=== PATIENT | male | born 1935 | race Caucasian/White ===

== ENCOUNTER 2022-07-15 15:41 | Emergency (ER) | payer MEDICARE, SELFPAY ==
--- NOTE | ~2022-07-15 | XR_ITS ---
EXAMINATION: XR chest 2V Exam Date/Time: 07/15/2022 17:20 CDT HISTORY: cough, SOB Comparison: None available. RESULT: Lines, tubes, and devices: None. Lungs and pleura: Peripheral reticular opacities. Cardiomediastinal silhouette: Stable. Other: No acute upper abdominal finding. Moderate vertebral body height loss at multiple levels. IMPRESSION: Mild interstitial edema. Reviewed, dictated and finalized at location K. IMPRESSION: Mild interstitial edema.
--- NOTE | ~2022-07-15 | CT_ITS ---
EXAMINATION: CT brain wo con DATE: 07/15/2022 17:42 INDICATION: confusion, dizziness . TECHNIQUE: Computed tomography (CT) of the head was performed without intravenous contrast. The mA wa s adjusted according to patient size. Iterative reconstruction technique was employed. The dose-lengt h product was 605.33 mGy-cm. COMPARISON: None FINDINGS: No acute intracranial hemorrhage or extra-axial fluid collection. No hydrocephalus, mass, or herniation. No acute ischemic infarct. Unremarkable dural venous sinus attenuation. No acute osseous abnormality. Near complete opacification of the right maxillary sinus with surrounding sclerosis. Likely prior rig ht maxillary surgery. Nodular opacities extend into the right nasal cavity. Partial opacification of multiple ethmoid air cells and the inferior right frontal sinuses. The remaining aerated spaces are c lear. Moderate atrophy, including cerebellar atrophy, and chronic white matter change. Atherosclerotic intr acranial calcification. Bilateral lens replacements. IMPRESSION: No acute intracranial process. Chronic right maxillary sinusitis. Reviewed, dictated and finalized at location K.
--- NOTE | 2022-07-15 15:46 | ECG_ITS ---
Measurements Intervals [place] Rate: 65 P: 50 UT: 137 QRS: 27 QRSD: 86 T: 29 QT: 375 QTc: 392 Interpretive Statements SINUS RHYTHM POSSIBLE LEFT ATRIAL ENLARGEMENT BORDERLINE ECG NO PREVIOUS ECG AVAILABLE FOR COMPARISON Electronically Signed On 07-16-2022 7:00:58 CDT by Robbin Garrison D.O.
[2022-07-15 15:57] VITALS: BP 135/72; PULSE 76; RESP 16; TEMP 37.3; O2SAT 100
[2022-07-15 16:07] LABS: Basophils Percent Auto 0.3 % (0.2-1.2); Eosinophils Percent Auto 0.5 % (0-4.4); Hematocrit 46.3 % (42.0-52.0); Hemoglobin 15.1 g/dL (14.0-18.0); Immature Granulocyte Absolute 0.02 K/mm3 (0.00-0.031); Immature Granulocyte Percent A 0.3 % (0-0.5); Immature Platelet Fraction Pct 5.4 % (0.9-11.2); Lymphocytes Absolute Auto 1.19 K/mm3 (0.9-3.2); Lymphocytes Percent Auto 19.6 % (18.3-44.2); Mean Corpuscular HGB Conc 32.6 g/dl (32-36); Mean Corpuscular Hemoglobin 29.8 pg (26-34); Mean Corpuscular Volume 91.3 fl (80-100); Mean Platelet Volume 10.8 fl (7.4-10.4); Monocytes Absolute Auto 0.8 K/mm3 (0.1-0.6); Neutrophils Percent Auto 66.3 % (45.5-73.1); Platelet Count Result 143 k/mm3 (150-375); Red Blood Count 5.07 M/mm3 (4.6-6.20); Red Cell Distribution Width 13.7 % (11.5-14.5); White Blood Count 6.1 K/mm3 (4.5-10.0)
[2022-07-15 16:17] LABS: Alanine Aminotransferase 31 U/L (6-50); Albumin Level 4.1 g/dL (3.5-5.1); Alkaline Phosphatase 78 U/L (38-126); Anion Gap 11 mmol/L (8-16); Aspartate Amino Transferase 46 U/L (17-59); Bilirubin,Total 0.9 mg/dL (0.2-1.3); Blood Urea Nitrogen 25 mg/dL (9-20); Calcium 8.8 mg/dL (8.4-10.2); Carbon Dioxide 25 mmol/L (22-30); Chloride 102 mmol/L (98-107); Estimated CRCL calculation 28 ml/min; Estimated Glomerular Filt Rate 44; Glucose 111 mg/dL (65-110); Potassium 4.1 mmol/L (3.4-5.0); Sodium 138 mmol/L (137-145)
--- NOTE | 2022-07-15 16:59 | ED.GENADULT ---
HPI - General Adult General Chief complaint: Weakness Stated complaint: weakness, balance, confusion x 1 week Time Seen by Provider: 07/15/22 16:58 History of Present Illness HPI narrative: Patient is an 87-year-old male who takes no medications at home here with his daughters for evaluation of weakness over the past several days. Patient's daughters state that the patient has been feeling generally fatigued throughout the day, sleeping much more than usual and has also been more confused than his baseline. Patient also has been experiencing upper respiratory symptoms including cough and congestion. No fevers or known sick contacts at home, although patient is not vaccinated against COVID. Has not yet taken COVID test at home. Additionally has been reporting urinary urgency but no burning, frequency, back pain, hematuria. No abdominal pain, nausea, vomiting, diarrhea or constipation. No chest pain, shortness of breath, headaches, visual changes, unilateral weakness. Patient follows with a primary care doctor regularly, is generally healthy and takes no medications. Related Data Home Medications Medication Instructions Recorded Confirmed No Home Medications 07/15/22 07/15/22 Allergies Allergy/AdvReac Type Severity Reaction Status Date / Time No Known Allergies Allergy Verified 07/15/22 17:06 Review of Systems Review of Systems: Gen: Reports fatigue and weakness. Denies fevers or chills Eyes: Denies eye pain or visual change ENT: Denies congestion Respiratory: Denies shortness of breath or cough CV: Denies chest pain or palpitations GI: Denies abdominal pain nausea, emesis or diarrhea denies burning, urgency, frequency or hematuria Musculoskeletal: Denies back pain or muscle pain Neuro: Denies numbness, tingling, focal weakness Skin: Denies rash Except as documented, all other systems reviewed and negative Exam Narrative: APPEARANCE: No acute distress, nontoxic, resting in bed EYES: EOMI HEENT: Normocephalic, atraumatic, OMM RESPIRATORY: No respiratory distress Clear to auscultation bilaterally with no rhonchi wheezing or rales. CARDIOVASCULAR: Regular rate and rhythm without murmurs rubs or gallops. ABDOMINAL: Soft, nontender, nondistended, no rebound or guarding MUSCULOSKELETAL: Moves all extremities. No clubbing, cyanosis or edema. NEURO: Patient did not know the year was 2021 but is able to say where he is, his name and his birthday. Awake and alert. Following commands, speech normal, no focal deficits SKIN: Warm, dry. No rashes lesions or abrasions PSYCHIATRIC: Normal affect/mood Course Course Emergency Course: Patient ambulated through the department without hypoxia, remained above 95% on room air Vital Signs Vital signs: Vital Signs Temperature 99.1 F 07/15/22 15:57 Pulse Rate 76 07/15/22 15:57 Respiratory Rate 16 07/15/22 15:57 Blood Pressure 135/72 07/15/22 15:57 Pulse Oximetry 100 07/15/22 15:57 Oxygen Delivery Room Air 07/15/22 15:57 Temperature 99.1 F 07/15/22 15:57 Pulse Rate 87 07/15/22 20:28 Respiratory Rate 18 07/15/22 20:28 Blood Pressure 133/73 07/15/22 20:28 Pulse Oximetry 100 07/15/22 20:28 Oxygen Delivery Room Air 07/15/22 15:57 Medical Decision Making MDM Narrative Medical decision making narrative: 87-year-old male here for evaluation of generalized fatigue over the past several days in addition to upper respiratory symptoms. Here he is nontoxic-appearing with normal vital signs, was noted to have a temperature of 99.1. His COVID test is positive which likely explains his symptoms, although a full work-up was done in addition. CT brain without acute ischemic changes. UA with protein and ketones but no signs of infection. Chest x-ray with trace pulmonary edema, BNP is 179 so doubt heart failure. EKG is nonischemic. Creatinine is 1.5, do not have baseline to compare to. No leukocytosis. Shared decision making was used with patient
[2022-07-15 18:24] LABS: Influenza A QL RT-PCR Negative (Negative); Influenza B QL RT-PCR Negative (Negative); SARS-CoV-2 RNA PCR Positive
[2022-07-15 19:21] LABS: NT Pro B Type Natriuretic Pept 179 pg/mL (5-100)
[2022-07-15 19:58] LABS: Appearance Urine Clear (Clear); Bilirubin Urine Negative (Negative); Blood Urine Negative (Negative); Color Urine Yellow (Yellow); Glucose Urine UA Negative (Negative); Ketones Urine 2+ mg/dL (Negative); Leukocyte Esterase Ur Negative LEU/UL (Negative); Nitrate Urine Negative (Negative); Protein Urine 2+ mg/dL (Negative); Urobilinogen Urine 0.2 mg/dL (<2.0); pH Urine 5.5 (5.0-9.0)
[2022-07-15 20:05] LABS: Add Urine Microscopic? YES
[2022-07-15 20:06] LABS: RBC Urine 0-2 /hpf (0-2); Squamous Epithelial Cell Urine Rare /hpf (Few); WBC Urine 0-3 /hpf (0-3)
[2022-07-15 20:07] LABS: Bacteria Urine Trace /hpf; Mucus Urine Rare /lpf
[2022-07-15 20:28] VITALS: BP 133/73; PULSE 87; RESP 18; O2SAT 100
== END 2022-07-15 20:25 | disposition home or self-care (01) ==
PROVIDERS: Emergency Medicine; Physician Assistant; Emergency Provider Emergency Medicine; PCP Internal Medicine
DX: U07.1 COVID-19 (principal); Z28.310 Unvaccinated for COVID-19
CPT/HCPCS: 36415; 70450; 71046; 80053; 81001; 83880; 85025; 85055; 87502; 93005; 99284; C9803; U0003; U0005

== ENCOUNTER 2024-03-18 14:51 | Emergency (ER) | payer MEDICARE, SELFPAY ==
[2024-03-18 14:54] VITALS: BP 146/69; PULSE 73; RESP 18; TEMP 36.5; O2SAT 97
[2024-03-18 16:51] LABS: Appearance Urine Clear (Clear); Bacteria Urine 1+ /hpf; Bilirubin Urine Negative (Negative); Blood Urine Negative (Negative); Color Urine Yellow (Yellow); Glucose Urine UA Negative (Negative); Ketones Urine Negative (Negative); Leukocyte Esterase Ur 1+ LEU/UL (Negative); Need Manual Microscopic Reviewed; Nitrate Urine Positive (Negative); Non Pathogenic Casts 0-2; Protein Urine Negative (Negative); RBC Urine 0-2 /hpf (0-2); Specific Grav Ur 1.019 (1.001-1.035); Squamous Epithelial Cell Urine None Seen /hpf (Few); Urobilinogen Urine 0.2 mg/dL (<2.0); WBC Urine 21-50 /hpf (0-3); pH Urine 5.5 (5.0-9.0)
[2024-03-18 16:52] LABS: Add Urine Microscopic? YES
--- NOTE | 2024-03-18 17:04 | ED.MALEGU ---
HPI - Male Genitourinary General Chief complaint: Urogenital-Male Stated complaint: swollen genitals, lower abd pain Time Seen by Provider: 03/18/24 15:46 History of Present Illness HPI Narrative: The patient is an 89-year-old male who presents ER with a swollen penis. Ongoing for 2 days. He is concerned it is related to a kidney infection. Mild discomfort with urination. No fevers or chills or sweats. No scrotal edema. Patient reports he is uncircumcised but he has been able to see the head of his penis the last 2 days as well. Related Data Allergies Allergy/AdvReac Type Severity Reaction Status Date / Time No Known Allergies Allergy Verified 03/18/24 14:58 Review of Systems Constitutional: Constitutional: Reports no additional constitutional complaints Cardiovascular: Cardiovascular: Reports no additional cardiovascular complaints Respiratory: Respiratory: Reports no additional respiratory complaints Gastrointestinal: Gastrointestinal: Reports no additional gastrointestinal complaints Genitourinary: Genitourinary: Reports dysuria, Denies penile discharge, Denies testicular pain and Denies urinary frequency Comments: Penile swelling PMFSH Past Medical History Medical History (Updated 03/18/24 @ 17:07 by Matty Anderson MD) Healthy adult male Exam Narrative: GENERAL: Well-appearing, well-nourished, and in no acute distress. HEAD: Normocephalic, atraumatic. ENT: Mucous membranes moist. CHEST: Clear to auscultation. No respiratory distress. HEART: Regular rate and rhythm. Normal peripheral pulses. ABDOMEN: Soft, nontender, nondistended. : swollen penile shaft and glans. Evidence of paraphimosis. Penis reduced. No scrotal or testicular swelling/tenderness. EXTREMITIES: Normal range of motion. No edema. NEURO: Alert and oriented x3. PSYCH: Normal mood and affect. Course Course Emergency Course: Patient resting comfortably. Informed of results. Discharge home with cefuroxime. Paraphimosis reduced. Patient educated on for skin care. Vital Signs Vital signs: Vital Signs Temperature 97.7 F 03/18/24 14:54 Pulse Rate 73 03/18/24 14:54 Respiratory Rate 18 03/18/24 14:54 Blood Pressure 146/69 H 03/18/24 14:54 Pulse Oximetry 97 03/18/24 14:54 Oxygen Delivery Room Air 03/18/24 14:54 Temperature 97.7 F 03/18/24 14:54 Pulse Rate 73 03/18/24 14:54 Respiratory Rate 18 03/18/24 14:54 Blood Pressure 146/69 H 03/18/24 14:54 Pulse Oximetry 97 03/18/24 14:54 Oxygen Delivery Room Air 03/18/24 14:54 MDM - Male Genitourinary Lab Data Labs: Lab Results 03/18/24 Range/Units 16:28 Urine Color Yellow (Yellow) Urine Appearance Clear (Clear) Urine pH 5.5 (5.0-9.0) Ur Specific Ashley 1.019 (1.001-1.035) Urine Protein Negative (Negative) mg/dL Urine Glucose (UA) Negative (Negative) mg/dL Urine Ketones Negative (Negative) mg/dL Ur Blood (Man) Negative (Negative) Urine Nitrate Positive H (Negative) Urine Bilirubin Negative (Negative) Urine Urobilinogen 0.2 (<2.0) mg/dL Add Ur Microanalysis Reviewed Leukocyte Esterase Rfl 1+ H (Negative) MIRANDA/UL Urine RBC 0-2 (0-2) /hpf Urine WBC 21-50 H (0-3) /hpf Ur Squamous Epith Cells None seen (Few) /hpf Urine Bacteria 1+ H /hpf Urine Casts 0-2 Discharge Plan Discharge Clinical Impression: Paraphimosis, UTI (urinary tract infection) Patient Disposition: Home, Self-Care Condition: Stable Instructions: Antibiotic Form, Urinary Tract Infection in Men (ED), Acute Paraphimosis (ED) Additional Instructions: You should return to the emergency department if you develop severe nausea and vomiting and are unable to keep liquids down, if you develop severe back/flank or stomach pain, or if your symptoms are not clearly improving at home. Make sure to keep your foreskin from pulling back behind the head of your penis. If h
[2024-03-18 17:58] VITALS: BP 147/74; PULSE 83; RESP 20; O2SAT 98
== END 2024-03-18 18:01 | disposition home or self-care (01) ==
PROVIDERS: Emergency Provider Emergency Medicine; PCP Internal Medicine
DX: N47.2 Paraphimosis (principal); N39.0 Urinary tract infection, site not specified
CPT/HCPCS: 81001; 87077; 87086; 87088; 87181; 99283

== ENCOUNTER 2024-11-16 16:08 | Outpatient (CLI) | payer MEDICARE, SELFPAY ==
[2024-11-16 16:31] LABS: Basophils Absolute Auto 0.1 K/mm3 (0.0-0.1); Basophils Percent Auto 1.1 % (0.2-1.2); Eosinophils Absolute Auto 0.4 K/mm3 (0-0.3); Eosinophils Percent Auto 5.4 % (0-4.4); Hematocrit 44.5 % (42.0-52.0); Hemoglobin 14.2 g/dL (14.0-18.0); Immature Granulocyte Absolute 0.01 K/mm3 (0.00-0.031); Immature Granulocyte Percent A 0.1 % (0-0.5); Lymphocytes Absolute Auto 2.16 K/mm3 (0.9-3.2); Lymphocytes Percent Auto 28.6 % (18.3-44.2); Mean Corpuscular HGB Conc 31.9 g/dl (32-36); Mean Corpuscular Hemoglobin 29.4 pg (26-34); Mean Corpuscular Volume 92.1 fl (80-100); Mean Platelet Volume 10.4 fl (7.4-10.4); Monocytes Absolute Auto 0.8 K/mm3 (0.1-0.6); Monocytes Percent Auto 11.1 % (2.6-8.5); Neutrophils Absolute Auto 4.1 K/mm3 (1.3-6.7); Neutrophils Percent Auto 53.7 % (45.5-73.1); Platelet Count Result 158 k/mm3 (150-375); Red Blood Count 4.83 M/mm3 (4.6-6.20); Red Cell Distribution Width 13.2 % (11.5-14.5); White Blood Count 7.6 K/mm3 (4.5-10.0)
[2024-11-16 16:43] LABS: Alanine Aminotransferase 15 U/L (6-50); Albumin Level 3.9 g/dL (3.5-5.1); Alkaline Phosphatase 102 U/L (38-126); Anion Gap 5 mmol/L (4-12); Aspartate Amino Transferase 23 U/L (17-59); Bilirubin,Total 0.5 mg/dL (0.2-1.3); Blood Urea Nitrogen 23 mg/dL (9-20); Calcium 8.3 mg/dL (8.4-10.2); Carbon Dioxide 31 mmol/L (22-30); Chloride 104 mmol/L (98-107); Cholesterol 189 mg/dL (0-200); Estimated Glomerular Filt Rate 49; Glucose 99 mg/dL (65-110); HDL Direct 39 mg/dL; Potassium 4.3 mmol/L (3.4-5.0); Sodium 140 mmol/L (137-145); Triglycerides 123 mg/dL (<150)
[2024-11-16 16:53] LABS: LDL Cholesterol Direct 106 mg/dL
== END 2024-11-16 16:09 | disposition home or self-care (01) ==
PROVIDERS: PCP Internal Medicine; Visit Provider Internal Medicine
DX: E78.5 Hyperlipidemia, unspecified (principal)
CPT/HCPCS: 36415; 80053; 80061; 84439; 84443; 85025